=== PATIENT | female | born 1995 | race Caucasian/White ===

== ENCOUNTER 2017-11-16 12:31 | Inpatient (IN) ==
[2017-11-16] MEDS ORDERED: *HR* LORazepam 2 MG/ML VIAL IVP ONE ×3 (12:37→18:30)
--- NOTE | 2017-11-16 12:56 | Emergency Department Note ---
Overdose - MDM Narrative Medical decision making narrative: This is a 22-year-old female status post an overdose likely on diphenhydramine. She appears clinically consistent with an anticholinergic overdose. At this time, she will need to be observed until symptoms resolve she can be seen by psychiatry. I discussed the case with the on-call hospitalist, Dr. Duff, who accepted her for admission - Lab Data Lab results narrative: CBC was unremarkable BMP was unremarkable LFT was unremarkable Salicylate level was low Tylenol level was low Ethanol level was low Drug screen was positive only for THC Result diagrams: 11/16/17 12:52 11/16/17 12:52 Lab Results 11/16/17 11/16/17 11/16/17 Range/Units 12:52 12:52 14:37 WBC 9.7 (4.3-11.1) K/mcL RBC 4.67 (3.82-4.97) M/mcL Hgb 13.5 (11.5-15.4) g/dL Hct 40.3 (35.3-44.9) % MCV 86.3 (83.0-100.0) fL MCH 28.9 (28.0-33.3) pg MCHC 33.5 (31.6-35.5) g/dL RDW 13.0 (11.5-14.5) % Plt Count 319 (140-400) K/mcL MPV 9.5 (9.4-12.4) fL Immature Gran % 0.4 (0-4) % Seg Neutrophils % 69.0 % Lymphocytes % 20.6 % Monocytes % 9.3 % Eosinophils % 0.2 % Basophils % 0.5 % Neutrophils # 6.7 (1.6-8.9) K/mcL Lymphocytes # 2.0 (0.6-4.6) K/mcL Monocytes # 0.9 (0.0-1.3) K/mcL Eosinophils # 0.0 (0.0-0.6) K/mcL Basophils # 0.1 (0.0-0.2) K/mcL Sodium 138 (136-145) mEq/L Potassium 3.6 (3.5-5.1) mEq/L Chloride 108 H (98-107) mEq/L Carbon Dioxide 23 (23-29) mEq/L BUN 13 (6-20) mg/dL Creatinine 1.01 (0.60-1.20) mg/dL Est GFR ( Amer) > 60 (> 60) Est GFR (Non-Af Amer) > 60 (> 60) BUN/Creatinine Ratio 13 (6-26) Glucose 55 L (70-105) mg/dL Calculated Osmolality 284 (280-300) Calcium 8.7 (8.6-10.3) mg/dL Total Bilirubin 0.4 (0.3-1.0) mg/dL Direct Bilirubin 0.1 (0.0-0.2) mg/dL Indirect Bilirubin 0.3 (0.0-1.2) mg/dL AST 8 L (13-39) Units/L ALT 7 (7-52) Units/L Alkaline Phosphatase 64 (34-104) Units/L Serum Total Protein 6.3 L (6.4-8.9) g/dL Albumin 4.0 (3.5-5.7) g/dL Globulin 2.3 L (2.4-3.5) g/dL Albumin/Globulin Ratio 1.7 (1.1-2.2) Urine Color (Yellow) Urine Clarity (Clear) Urine pH (5.0-8.0) pH Units Ur Specific [place] (1.010-1.025) Urine Protein (Neg-Trace) mg/dL Urine Glucose (UA) (Normal) mg/dL Urine Ketones (Negative) mg/dL Urine Blood (Negative) Urine Nitrite (Negative) Urine Bilirubin (Negative) Urine Urobilinogen (Normal) mg/dL Ur Leukocyte Esterase (Negative) Urine Microscopic RBC (0-3) per hpf Urine Microscopic WBC (0-3) per hpf Ur Squamous Epith Cells (None-Few) per lpf Urine Bacteria (None-Few) per hpf Hyaline Casts (None-Few) per lpf Urine Test Negative (Negative) Salicylates < 2.5 L (15.0-30.0) mg/dL Urine Opiates Screen (Wdpnfb=646) ng/mL Acetaminophen < 10 L (10-20) mcg/mL Ur Barbiturates Screen (Bdgenr=191) ng/mL Ur Phencyclidine Scrn (Cutoff=25) ng/mL Ur Amphetamines Screen (Juswny=5323) ng/mL U Benzodiazepines Scrn (Yljznc=993) ng/mL Urine Cocaine Screen (Cutoff= 300) ng/mL U Marijuana (THC) Screen (Cutoff = 50) ng/mL Ur Drug Screen Interp Ethyl Alcohol < 10 (Less than 10) mg/dL 11/16/17 11/16/17 Range/Units 14:41 14:41 WBC (4.3-11.1) K/mcL RBC (3.82-4.97) M/mcL Hgb (11.5-15.4) g/dL Hct (35.3-44.9) % MCV (83.0-100.0) fL MCH (28.0-33.3) pg MCHC (31.6-35.5) g/dL RDW (11.5-14.5) % Plt Count (140-400) K/mcL MPV (9.4-12.4) fL Immature Gran % (0-4) % Seg Neutrophils % % Lymphocytes % % Monocytes % % Eosinophils % % Basophils % % Neutrophils # (1.6-8.9) K/mcL Lymphocytes # (0.6-4.6) K/mcL Monocytes # (0.0-1.3) K/mcL Eosinophils # (0.0-0.6) K/mcL Basophils # (0.0-0.2) K/mcL Sodium (136-145) mEq/L Potassium (3.5-5.1) mEq/L Chloride (98-107) mEq/L Carbon Dioxide (23-29) mEq/L BUN (6-20) mg/dL Creatinine (0.60-1.20) mg/dL Est GFR ( Amer) (> 60) Est GFR (Non-Af Amer) (> 60) BUN/Creatinine Ratio (6-26) Glucose (70-105) mg/dL Calculated Osmolality (280-300) Calcium (8.6-10.3) mg/dL Total Bilirubin (0.3-1.0) mg/dL Direct Bilirubin (0.0-0.2) mg/dL Indirect Bilirubin (0.0-1.2) mg/dL AST (13-39) Units/L ALT (7-52) Units/L Alkaline Phosphatase (34-104) Units/L Serum Total Protein (6.4-8.9) g/dL Albumin (3.5-5.7) g/dL Globulin (2.4-3.5) g/dL Albumin/Globulin Ratio (1.1-2.2) Urine Color Yellow (Yellow) Urine Clarity Clear (Clear) Urine pH 5.0 (5.0-8.0) pH Units Ur Specific [place] > 1.030 H (1.010-1.025) Urine Protein 30 H (Neg-Trace) mg/dL Urine Glucose (UA) Normal (Normal) mg/dL Urine Ketones Negative (Negative) mg/dL Urine Blood Negative (Negative) Urine Nitrite Negative (Negative) Urine Bilirubin Negative (Negative) Urine Urobilinogen Normal (Normal) mg/dL Ur Leukocyte Esterase Negative (Negative) Urine Microscopic RBC 0-3 (0-3) per hpf Urine Microscopic WBC 0-3 (0-3) per hpf Ur Squamous Epith Cells Many H (None-Few) per lpf Urine Bacteria None Seen (None-Few) per hpf Hyaline Casts Few (None-Few) per lpf Urine Test (Negative) Salicylates (15.0-30.0) mg/dL Urine Opiates Screen Negative (Hlqttb=405) ng/mL Acetaminophen (10-20) mcg/mL Ur Barbiturates Screen Negative (Zqpdid=549) ng/mL Ur Phencyclidine Scrn Negative (Cutoff=25) ng/mL Ur Amphetamines Screen Negative (Abpzgz=2308) ng/mL U Benzodiazepines Scrn Negative (Deofbx=026) ng/mL Urine Cocaine Screen Negative (Cutoff= 300) ng/mL U Marijuana (THC) Screen Positive H (Cutoff = 50) ng/mL Ur Drug Screen Interp See Below Ethyl Alcohol (Less than 10) mg/dL - EKG Data EKG attestation: Yes I reviewed and interpreted this EKG. EKG results narrative: ECG shows sinus tachycardia, 141 bpm, normal intervals, normal axis, small T waves, no ST abnormalities Overdose HPI - General Stated Complaint: OD Time Seen by Provider: 11/16/17 12:37 Source: EMS Mode of arrival: EMS Limitations: altered mental status Nursing Notes Reviewed: Yes Vital Signs Reviewed: Yes - History of Present Illness HPI Narrative: This is a 22-year-old female brought in by EMS after they were called by a friend stating that the patient was poorly responsive and noting that a bottle of 30-50 mg diphenhydramine pills was empty and may have been fall prior to this morning. The patient is wide-eyed but nonverbal, appears unable to provide thoughtful responses to questions, and appears very fearful. At this point we must assume that this was an intentional ingestion. Timing is unknown. - Related Data Allergies Allergy/AdvReac Type Severity Reaction Status Date / Time No Known Allergies Allergy Verified 11/16/17 17:04 Limitations: ROS unobtainable due to patients medical condition Past Medical History - Past Medical History Source: unable to obtain Physical Exam - General Limitations: altered mental status General appearance: alert, other (Appears very fearful, wide-eyed, frightened look) - Head Head exam: atraumatic, normocephalic, normal inspection - Eye Eye exam: Present: EOMI, other (Pupils are 3 mm diameter, sluggishly reactive, equal) - Neck Neck exam: Present: normal inspection, full ROM, trachea midline - Chest Chest inspection: Present: normal inspection, symmetric chest wall rise - Respiratory Respiratory exam: Present: normal lung sounds bilaterally - Cardiovascular Cardiovascular exam: Present: normal rhythm, tachycardia, normal heart sounds - Abdominal Exam Abdominal exam: Present: soft, Non-Tender. Absent: tenderness, distention, guarding, rebound, rigidity - Extremities Exam Extremities exam: Present: normal inspection, full ROM. Absent: tenderness, pedal edema - Neurological Exam Neurological exam: Present: alert, CN II-XII intact. Absent: oriented X3, motor sensory deficit - Psychiatric Psychiatric exam: Present: anxious - Skin Skin exam: Present: warm, dry Course Course Narrative: This is a 22-year-old female with an apparent anticholinergic overdose. She was given two 2 mg doses of Ativan with some improvement. Nursing consult in the poison center, and I initially ordered 0.5 mg of physostigmine, but the poison center did not encourage reversal was physostigmine. As a result, I canceled the order was not given. It seems more reasonable simply to observe her in the hospital until symptoms resolve. Vital Signs Temperature 97.6 F 11/16/17 12:33 Pulse Rate 135 11/16/17 12:33 Respiratory Rate 22 11/16/17 12:33 Blood Pressure 127/77 11/16/17 12:33 O2 Sat by Pulse Oximetry 97 11/16/17 12:33 Temperature 97.6 F 11/16/17 12:33 Pulse Rate 135 11/16/17 15:53 Respiratory Rate 20 11/16/17 15:53 Blood Pressure 102/80 11/16/17 15:53 O2 Sat by Pulse Oximetry 97 11/16/17 15:53 Oxygen Delivery Oxygen Delivery Room Air Critical Care Time Critical Care Time: Yes Total Critical Care Time: 20 Attestation: Critical care time involved was 20 minutes associated with review of laboratory values as well as examination of the patient. Disposition Clinical Impression: Overdose of drug Qualifiers: Encounter type: initial encounter Injury intent: intentional self-harm Qualified Code(s): T50.902A - Poisoning by unspecified drugs, medicaments and biological substances, intentional self-harm, initial encounter Disposition: Admitted As Inpatient Condition: Good Referrals: NONE,PCP [Primary Care Provider] - Romelia Clemons [Family Provider] - Time of Disposition: 17:39
[2017-11-16 13:02] LABS: Basophils # 0.1 K/mcL (0.0-0.2); Basophils % 0.5 %; Eosinophils % 0.2 %; Hematocrit 40.3 % (35.3-44.9); Hemoglobin 13.5 g/dL (11.5-15.4); Immature Granulocytes % 0.4 % (0-4); Lymphocytes % 20.6 %; Mean Corpuscular HGB Conc 33.5 g/dL (31.6-35.5); Mean Corpuscular Hemoglobin 28.9 pg (28.0-33.3); Mean Corpuscular Volume 86.3 fL (83.0-100.0); Mean Platelet Volume 9.5 fL (9.4-12.4); Monocytes # 0.9 K/mcL (0.0-1.3); Monocytes % 9.3 %; Neutrophils # 6.7 K/mcL (1.6-8.9); Platelet Count 319 K/mcL (140-400); Red Blood Count 4.67 M/mcL (3.82-4.97)
[2017-11-16 13:20] LABS: Acetaminophen < 10 mcg/mL (10-20); Alanine Aminotransferase 7 Units/L (7-52); Albumin/Globulin Ratio 1.7 (1.1-2.2); Alkaline Phosphatase 64 Units/L (34-104); Aspartate Amino Transferase 8 Units/L (13-39); BUN/Creatinine Ratio 13 (6-26); Bilirubin,Direct 0.1 mg/dL (0.0-0.2); Bilirubin,Indirect 0.3 mg/dL (0.0-1.2); Bilirubin,Total 0.4 mg/dL (0.3-1.0); Blood Urea Nitrogen 13 mg/dL (6-20); Calcium 8.7 mg/dL (8.6-10.3); Carbon Dioxide 23 mEq/L (23-29); Chloride 108 mEq/L (98-107); Ethanol < 10 mg/dL (Less than 10); Globulin 2.3 g/dL (2.4-3.5); Glucose 55 mg/dL (70-105); Osmolality,Calculated 284 (280-300); Potassium 3.6 mEq/L (3.5-5.1); Salicylate < 2.5 mg/dL (15.0-30.0); Sodium 138 mEq/L (136-145); Total Protein 6.3 g/dL (6.4-8.9); eGFR For Non-African Americans > 60 (> 60)
[2017-11-16] MEDS ORDERED: PHYSOSTIGMINE SALICYLATE IVP ONE (14:36)
[2017-11-16 15:14] LABS: Amphetamine Screen,Urine Negative ng/mL (Cutoff=1000); Barbiturate Screen,Urine Negative ng/mL (Cutoff=200); Benzodiazepines Screen,Urine Negative ng/mL (Cutoff=200); Cannabinoid Screen,Urine Positive ng/mL (Cutoff = 50); Cocaine Screen,Urine Negative ng/mL (Cutoff= 300); Opiate Screen,Urine Negative ng/mL (Cutoff=300); Phencyclidine Screen,Urine Negative ng/mL (Cutoff=25)
[2017-11-16 17:14] LABS: Bilirubin,Urine Negative (Negative); Blood,Urine Negative (Negative); Clarity,Urine Clear (Clear); Color,Urine Yellow (Yellow); Glucose,Urine (UA) Normal (Normal); Ketones,Urine Negative (Negative); Leukocyte Esterase,Urine Negative (Negative); Nitrite,Urine Negative (Negative); Protein,Urine 30 mg/dL (Neg-Trace); Specific Gravity,Urine > 1.030 (1.010-1.025); Urobilinogen,Urine Normal (Normal)
[2017-11-16 17:16] LABS: Bacteria,Urine None Seen per hpf (None-Few); Hyaline Casts,Urine Few per lpf (None-Few); RBC,Urine 0-3 per hpf (0-3); Squamous Epithelial Cell,Urine Many per lpf (None-Few); WBC,Urine 0-3 per hpf (0-3)
[2017-11-16] MEDS ORDERED: *HR* LORazepam 2 MG/ML VIAL ONE (18:21)
[2017-11-16] MEDS: *HR* LORazepam 2 MG/ML VIAL IVP PRN ×4 (20:20→23:19)
[2017-11-16] MEDS ORDERED: Naloxone 0.4 MG/ML INJ IVP PRN (22:37)
[2017-11-16] MEDS ORDERED: 0.9 % Sodium Chloride w KCl 20 MEQ/1,000 ML MLS IVC SCH (22:45)
[2017-11-17] MEDS: *HR* LORazepam 2 MG/ML VIAL IVP PRN ×4 (00:43→09:46)
[2017-11-17] MEDS ORDERED: Haloperidol Lactate 5 MG/ML VIAL IVP ONE (02:30)
[2017-11-17 03:36] LABS: Alanine Aminotransferase 5 Units/L (7-52); Albumin 3.9 g/dL (3.5-5.7); Albumin/Globulin Ratio 1.6 (1.1-2.2); Alkaline Phosphatase 62 Units/L (34-104); Aspartate Amino Transferase 12 Units/L (13-39); BUN/Creatinine Ratio 11 (6-26); Bilirubin,Total 0.6 mg/dL (0.3-1.0); Blood Urea Nitrogen 8 mg/dL (6-20); Calcium 8.7 mg/dL (8.6-10.3); Carbon Dioxide 18 mEq/L (23-29); Chloride 111 mEq/L (98-107); Globulin 2.4 g/dL (2.4-3.5); Glucose 82 mg/dL (70-105); Magnesium 2.2 mg/dL (1.6-2.6); Osmolality,Calculated 281 (280-300); Potassium 4.1 mEq/L (3.5-5.1); Sodium 137 mEq/L (136-145); Total Protein 6.3 g/dL (6.4-8.9); eGFR For Non-African Americans > 60 (> 60)
[2017-11-17 03:37] LABS: Basophils # 0.1 K/mcL (0.0-0.2); Basophils % 0.5 %; Eosinophils % 0.1 %; Hematocrit 37.6 % (35.3-44.9); Immature Granulocytes % 0.3 % (0-4); Lymphocytes # 3.6 K/mcL (0.6-4.6); Lymphocytes % 23.6 %; Mean Corpuscular HGB Conc 34.6 g/dL (31.6-35.5); Mean Corpuscular Hemoglobin 29.7 pg (28.0-33.3); Mean Corpuscular Volume 85.8 fL (83.0-100.0); Mean Platelet Volume 9.9 fL (9.4-12.4); Monocytes # 1.5 K/mcL (0.0-1.3); Monocytes % 9.9 %; Platelet Count 296 K/mcL (140-400); Red Blood Count 4.38 M/mcL (3.82-4.97); Segmented Neutrophils % 65.6 %
[2017-11-17 04:43] LABS: Creatine Kinase 86 Units/L (30-223)
--- NOTE | 2017-11-17 05:05 | Internal Med History&Physical ---
Date of Encounter: 11/16/17 Time of Encounter: 23:00 Internal Medicine - H&P: HPI Chief complaint: Drug overdose; possible suicidal attempt. Admitted From: Home Plans for Post Hospital Care: Transfer Psych Facility History of present illness: Ms. Bazzi is a 22 year old female. We got this patient from our emergency department. The patient had likely overdosed diphenhydramine; an empty bottle for 32 50 mg tablets was found next to the patient today. According to the patient's her mother, the patient was talking about killing herself before. She wanted to do that taking "sleeping pills". The patient has been treated for depression with anxiety for long periods of time. I found this patient very agitated; not answering my questions and not following my commands. She was moving her upper and lower extremities continuously. She seemed to be hallucinating. We gave her multiple doses of IV lorazepam. This patient used to live with her girlfriend. She was using marijuana on a daily basis. She was also using both from the streets Xanax. Review of systems: All 14 organ systems were reviewed by me with the patient's mother. Positive and pertinent negative findings are listed above. The rest of organ systems is negative. Physical Exam: Skin: Free of rash and discoloration. Eyes: Sclera is white. There is no discharge from eyes. ENMT: Oral/pharyngeal mucosa is normal in appearance. There is no discharge from nose or ears. Respiratory: Normal breath sounds with no crackles and wheezes bilaterally. CV: Heart is regular with no gallop or murmur. She is tachycardic. GI: Abdomen is flat and soft with no palpable mass or visceromegaly. : There is no tenderness in patient's flanks bilaterally. Neuro exam: The patient is moving all 4 extremities. Her pupils are normal size. Psychiatric: The patient is very agitated; seems to be hallucinating. A/P: Drug overdose. It could be diphenhydramine. This also could be some stimulant. Urine drug screen is positive for marijuana. She may also have acute withdrawal symptomsbenzodiazepines or others. We will continue supportive treatments. She got somewhat better after multiple doses of IV lorazepam. We will keep her on IV fluids with addition of potassium as her potassium is 3.6. Suicidal ideations/possible suicidal attempt in a patient with underlying depression/anxiety. Will consult psychiatry, when she is medically stable. Polysubstance abuse. It is marijuana and Xanax; could be some other substances. Past Med Surg Social Fam HX - Past Medical History Medical history: no medical history Psychiatric history: anxiety, depression - Social History Smoking Status: Current every day smoker Alcohol use: none Drug use: marijuana Internal Medicine - H&P: Meds Brexpiprazole [Rexulti] 1 mg PO DAILY 11/16/17 [History] Sertraline [Zoloft] 50 mg PO DAILY 11/16/17 [History] 3 Allergy/AdvReac Type Severity Reaction Status Date / Time No Known Allergies Allergy Verified 11/16/17 17:04 - Constitutional Vitals: Temp Pulse Resp BP Pulse Ox 98.6 F 107 16 125/79 98 11/16/17 23:32 11/16/17 23:32 11/16/17 23:32 11/16/17 23:32 11/16/17 23:32 Internal Med - H&P Results - Labs CBC & Chem 7: 11/17/17 03:07 11/17/17 03:07 Labs: Short CBC 11/17/17 Range/Units 03:07 WBC 15.2 H D (4.3-11.1) K/mcL Hgb 13.0 (11.5-15.4) g/dL Hct 37.6 (35.3-44.9) % Plt Count 296 (140-400) K/mcL Neutrophils # 10.0 H (1.6-8.9) K/mcL BMP 11/17/17 03:07 Sodium 137 Potassium 4.1 Chloride 111 H Carbon Dioxide 18 L BUN 8 Creatinine 0.73 Glucose 82 Calcium 8.7 Liver Function 11/17/17 Range/Units 03:07 Total Bilirubin 0.6 (0.3-1.0) mg/dL AST 12 L (13-39) Units/L ALT 5 L (7-52) Units/L Alkaline Phosphatase 62 (34-104) Units/L Albumin 3.9 (3.5-5.7) g/dL - Assessment and plan (1) Suicidal overdose Current Visit: Yes Status: Acute Qualifiers: Encounter type: initial encounter Qualified Code(s): T50.902A - Poisoning by unspecified drugs, medicaments and biological substances, intentional self- harm, initial encounter (2) Overdose of drug Current Visit: Yes Status: Acute Qualifiers: Encounter type: initial encounter Injury intent: intentional self-harm Qualified Code(s): T50.902A - Poisoning by unspecified drugs, medicaments and biological substances, intentional self-harm, initial encounter (3) Substance-induced delirium Current Visit: Yes Status: Acute (4) Depression with anxiety Current Visit: Yes Status: Acute - Time Spent With Patient Total time spent is greater than 50% in coordination of care (as documented) at patient's floor/unit and/or counseling patient: Greater than 35 minutes (45 minutes)
--- NOTE | 2017-11-17 08:25 | Electrocardiograph Report ---
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
[2017-11-17] MEDS ORDERED: Haloperidol Lactate 5 MG/ML VIAL IVP PRN (09:51)
--- NOTE | 2017-11-17 12:32 | Consult Note ---
Date of Encounter: 11/17/17 Time of Encounter: 12:13 Assessment & Recommendation (1) Substance-induced delirium Current visit: Yes Status: Acute Assessment & Recommendation: Would recommend inpatient psychiatric admission once medically stable and able to stay awake and answer questions. For agitation would continue prn Haldol for now. Likely had an anticholinergic delirium from Benadryl overdose. Would not continue home antidepressants at this time. History of Present Illness Requesting Physician: Rodo Duff Reason for consult: overdose History of present illness: Ms. Bazzi is a 22 year old female who was admitted following what appears to be an overdose attempt. Believed to have taken an entire bottle of Benadryl. Has been agitated/delirious in the hospital and unable to answer questions. Given Ativan initially which did not help. Switched to Haldol which has had success in calming her but now she is sedated. Opens her eyes but does not respond to this credit underwriter. Mother present and states client has been talking about killing herself. Lives with girlfriend and the two of them frequently threaten suicide. Feed off one another. Client recently started cutting. According to her mother client has never been hospitalized but does see a doctor for "depression and anxiety." Presented to hospital with two pill bottles-Zoloft and Rexulti. Zoloft appears to be an old script. Rexulti is current. Would not recommend giving her either until she clears. Mother does not know of any other health issues. Mother does not know of any AOD use beyond THC. CC: Rodo Duff Past Med Surg Social Fam HX - Past Medical History Medical history: no medical history - Past Psychiatric History Psychiatric history: Reports: anxiety, depression Family psychiatric history: Unknown Family History of Suicide: Unknown - Social History Smoking Status: Current every day smoker Alcohol use: none Drug use: marijuana Medications & Allergies Brexpiprazole [Rexulti] 1 mg PO DAILY 11/16/17 [History] Sertraline [Zoloft] 50 mg PO DAILY 11/16/17 [History] 3 Allergy/AdvReac Type Severity Reaction Status Date / Time No Known Allergies Allergy Verified 11/16/17 17:04 Review of Systems Constitutional: Denies: fever, chills, weakness, weight change Eyes: Denies: eye pain, vision change Ears, Nose, Throat: Denies: ear pain, throat pain, dental pain, hearing loss, congestion Cardiovascular: Denies: chest pain, palpitations, dyspnea on exertion Respiratory: Denies: cough, dyspnea, wheezes Gastrointestinal: Denies: abdominal pain, nausea, vomiting, diarrhea, constipation Genitourinary female: Denies: urgency, dysuria, frequency, abnormal menses, dyspareunia Musculoskeletal: Denies: joint swelling, joint pain Integumentary: Denies: rash, lesions, pruritus Neurological: Denies: headache, weakness, numbness, memory loss Endocrine: Denies: fatigue, heat or cold intolerance Hematologic/Lymphatic: Denies: easy bruising, lymphadenopathy Allergic/Immunologic: Denies: urticaria, itchy eyes Psychiatry Exam - Constitutional Vitals: Temp Pulse Resp BP Pulse Ox 98.3 F 90 16 121/83 98 11/17/17 08:54 11/17/17 08:54 11/17/17 08:54 11/17/17 08:54 11/16/17 23:32 General appearance: age & developmentally appropriate - Musculoskeletal Gait: other Station: other Strength & Tone: other - Psychiatric Patient Orientation: Yes Other Level of alertness: Sedated Behavior: other Eye Contact: No Eye Contact Mood Description: Other Affect description: other Speech Volume: No speech Speech pattern: other Language & Vocabulary: other Thought Content: Yes Suicidal ideation Attention Span Ability: Unable to Focus, Unable to Sustain Attention Patient Reliability: Not Reliable Historian Intelligence Estimate: Average Judgment: Poor Insight: Minimal Results - Labs Labs: Laboratory Last Values WBC 15.2 K/mcL (4.3-11.1) H D 11/17/17 03:07 RBC 4.38 M/mcL (3.82-4.97) 11/17/17 03:07 Hgb 13.0 g/dL (11.5-15.4) 11/17/17 03:07 Hct 37.6 % (35.3-44.9) 11/17/17 03:07 MCV 85.8 fL (83.0-100.0) 11/17/17 03:07 MCH 29.7 pg (28.0-33.3) 11/17/17 03:07 MCHC 34.6 g/dL (31.6-35.5) 11/17/17 03:07 RDW 13.0 % (11.5-14.5) 11/17/17 03:07 Plt Count 296 K/mcL (140-400) 11/17/17 03:07 MPV 9.9 fL (9.4-12.4) 11/17/17 03:07 Immature Gran % 0.3 % (0-4) 11/17/17 03:07 Seg Neutrophils % 65.6 % 11/17/17 03:07 Lymphocytes % 23.6 % 11/17/17 03:07 Monocytes % 9.9 % 11/17/17 03:07 Eosinophils % 0.1 % 11/17/17 03:07 Basophils % 0.5 % 11/17/17 03:07 Neutrophils # 10.0 K/mcL (1.6-8.9) H 11/17/17 03:07 Lymphocytes # 3.6 K/mcL (0.6-4.6) 11/17/17 03:07 Monocytes # 1.5 K/mcL (0.0-1.3) H 11/17/17 03:07 Eosinophils # 0.0 K/mcL (0.0-0.6) 11/17/17 03:07 Basophils # 0.1 K/mcL (0.0-0.2) 11/17/17 03:07 Sodium 137 mEq/L (136-145) 11/17/17 03:07 Potassium 4.1 mEq/L (3.5-5.1) 11/17/17 03:07 Chloride 111 mEq/L (98-107) H 11/17/17 03:07 Carbon Dioxide 18 mEq/L (23-29) L 11/17/17 03:07 BUN 8 mg/dL (6-20) 11/17/17 03:07 Creatinine 0.73 mg/dL (0.60-1.20) 11/17/17 03:07 Est GFR ( Amer) > 60 (> 60) 11/17/17 03:07 Est GFR (Non-Af Amer) > 60 (> 60) 11/17/17 03:07 BUN/Creatinine Ratio 11 (6-26) 11/17/17 03:07 Glucose 82 mg/dL (70-105) 11/17/17 03:07 Calculated Osmolality 281 (280-300) 11/17/17 03:07 Calcium 8.7 mg/dL (8.6-10.3) 11/17/17 03:07 Magnesium 2.2 mg/dL (1.6-2.6) 11/17/17 03:07 Total Bilirubin 0.6 mg/dL (0.3-1.0) 11/17/17 03:07 Direct Bilirubin 0.1 mg/dL (0.0-0.2) 11/16/17 12:52 Indirect Bilirubin 0.3 mg/dL (0.0-1.2) 11/16/17 12:52 AST 12 Units/L (13-39) L 11/17/17 03:07 ALT 5 Units/L (7-52) L 11/17/17 03:07 Alkaline Phosphatase 62 Units/L (34-104) 11/17/17 03:07 Creatine Kinase 86 Units/L (30-223) 11/17/17 03:07 Serum Total Protein 6.3 g/dL (6.4-8.9) L 11/17/17 03:07 Albumin 3.9 g/dL (3.5-5.7) 11/17/17 03:07 Globulin 2.4 g/dL (2.4-3.5) 11/17/17 03:07 Albumin/Globulin Ratio 1.6 (1.1-2.2) 11/17/17 03:07 Urine Color Yellow (Yellow) 11/16/17 14:41 Urine Clarity Clear (Clear) 11/16/17 14:41 Urine pH 5.0 pH Units (5.0-8.0) 11/16/17 14:41 Ur Specific [place] > 1.030 (1.010-1.025) H 11/16/17 14:41 Urine Protein 30 mg/dL (Neg-Trace) H 11/16/17 14:41 Urine Glucose (UA) Normal mg/dL (Normal) 11/16/17 14:41 Urine Ketones Negative mg/dL (Negative) 11/16/17 14:41 Urine Blood Negative (Negative) 11/16/17 14:41 Urine Nitrite Negative (Negative) 11/16/17 14:41 Urine Bilirubin Negative (Negative) 11/16/17 14:41 Urine Urobilinogen Normal mg/dL (Normal) 11/16/17 14:41 Ur Leukocyte Esterase Negative (Negative) 11/16/17 14:41 Urine Microscopic RBC 0-3 per hpf (0-3) 11/16/17 14:41 Urine Microscopic WBC 0-3 per hpf (0-3) 11/16/17 14:41 Ur Squamous Epith Cells Many per lpf (None-Few) H 11/16/17 14:41 Urine Bacteria None Seen per hpf (None-Few) 11/16/17 14:41 Hyaline Casts Few per lpf (None-Few) 11/16/17 14:41 Urine Test Negative (Negative) 11/16/17 14:37 Salicylates < 2.5 mg/dL (15.0-30.0) L 11/16/17 12:52 Urine Opiates Screen Negative ng/mL (Mrxmiw=401) 11/16/17 14:41 Acetaminophen < 10 mcg/mL (10-20) L 11/16/17 12:52 Ur Barbiturates Screen Negative ng/mL (Limcxj=959) 11/16/17 14:41 Ur Phencyclidine Scrn Negative ng/mL (Cutoff=25) 11/16/17 14:41 Ur Amphetamines Screen Negative ng/mL (Vyvoda=8136) 11/16/17 14:41 U Benzodiazepines Scrn Negative ng/mL (Qaagvy=314) 11/16/17 14:41 Urine Cocaine Screen Negative ng/mL (Cutoff= 300) 11/16/17 14:41 U Marijuana (THC) Screen Positive ng/mL (Cutoff = 50) H 11/16/17 14:41 Ur Drug Screen Interp See Below 11/16/17 14:41 Ethyl Alcohol < 10 mg/dL (Less than 10) 11/16/17 12:52 Consult Discharge Plan - Plan
--- NOTE | 2017-11-17 14:27 | Discharge Summary ---
- NOTES TO OUTPATIENT PROVIDER Notes to Outpatient Provider: With psychiatrist Orders not resulted at time of discharge: Pending orders 11/17/17 07:43 EKG [ECG 12 lead ECG] [ECG] Stat Date of Encounter: 11/17/17 Time of Encounter: 09:30 - Discharge Diagnosis (1) Overdose of drug Priority: Primary Status: Acute Qualifiers: Encounter type: initial encounter Injury intent: intentional self-harm Qualified Code(s): T50.902A - Poisoning by unspecified drugs, medicaments and biological substances, intentional self-harm, initial encounter (2) Substance-induced delirium Priority: Primary Status: Acute (3) Suicidal overdose Priority: Primary Status: Acute Qualifiers: Encounter type: initial encounter Qualified Code(s): T50.902A - Poisoning by unspecified drugs, medicaments and biological substances, intentional self- harm, initial encounter (4) Depression with anxiety Priority: Secondary Status: Chronic Hospital course: Ms. Bazzi is a 22 year old female with depression and anxiety with hx of suicidal ideation who was found wit an empt bottle of 32 pills of 50mg of benadryl empty beside her. According to the patient's her mother, the patient was talking about killing herself before. She wanted to do that taking "sleeping pills". The patient has been treated for depression with anxiety for long periods of time. During my review, the patient was psychotic and hallucinating. She has had no fever, labs were unremarkable, UA was clean and Utox was positive for THC EKG was normal sinus rhythm with normal QRS. LFT was unremarkable. Salicylate level was low .Tylenol level was low. Ethanol level was low She responded to haldol only, lorazepam further made her agitated She received supportive care with IVF hydration and sitter was placed wit psych eval Psych recommends in-patient psych admission when medically stable, patient is currently medically stable as there is no sepsis, no fever, vitals are stable EKG is unremarkable for QRS changes Discharge discussed with: patient, nurse, professional employer consultant - Time Spent with Patient Total time spent providing and/or coordinating discharge services: Less than 30 minutes - Discharge Medications Home Medications: Brexpiprazole [Rexulti] 1 mg PO DAILY 11/16/17 [History] Sertraline [Zoloft] 50 mg PO DAILY 11/16/17 [History] Allergies/Adverse Reactions: 3 Allergy/AdvReac Type Severity Reaction Status Date / Time No Known Allergies Allergy Verified 11/16/17 17:04 Date of admission: 11/16/17 22:37 Primary care physician: PCP NONE Consults: 11/17/17 01:53 Consult to R[facility] Puncher [CONS] Routine Reason for SW Consult: OVERDOSE 11/17/17 07:41 Consult to Psychiatry [CONS] Routine Consulting Provider: Psychiatry Chanell Reason consult: Sitter/1:1 Discharging clinician: Eusebio Young Anticipated date of discharge: 11/17/17 - Constitutional Vitals: Temp Pulse Resp BP Pulse Ox 98.3 F 90 16 121/83 98 11/17/17 08:54 11/17/17 08:54 11/17/17 08:54 11/17/17 08:54 11/16/17 23:32 General appearance: Present: A&O X 1 (confused, unable to hold a conversation, not in distress but confused and agitated) - Head Head exam: Present: atraumatic, normocephalic - Eye Eye exam: Present: PERRL (pupils 3mm, reactive), conjuntiva pink, sclera anicteric Pupils: Present: PERRL - Neck Neck exam general surgery: Present: supple, trachea midline. Absent: lymphadenopathy - Respiratory Respiratory exam: Present: CTAB. Absent: accessory muscle use, rales, rhonchi, wheezes - Cardiovascular Cardiovascular exam: Present: RRR, +S1, +S2. Absent: diastolic murmur, gallop, rubs, systolic murmur - GI/Abdominal GI/Abdominal exam: Present: normal bowel sounds, soft, no peritoneal signs. Absent: distended, tenderness - Extremities Exam Extremities exam: Present: warm, radial pulses palpable and symmetrical. Absent : calf tenderness, cyanotic, pedal edema - Neurological Exam Neurological exam: Present: alert, CN II-XII intact, no focal deficits. Absent : oriented X3, pronater drift, facial droop, speech deficit - Skin Skin exam: Present: dry, intact - Patient Status Disposition: Transfer Psychiatric Hosp Condition: Good Overall status at discharge: patient is not back to baseline - Discharge Instructions Follow Up With: NONE,PCP [Primary Care Provider] - Romelia Clemons [Family Provider] - Forms: ED Satisfaction Letter - Diet and Activity Diet: regular diet
[2017-11-17] MEDS: Nicotine 14 MG PATCH.TD24 TD SCH (20:57)
[2017-11-18] MEDS: Nicotine 14 MG PATCH.TD24 TD SCH (10:18)
[2017-11-18 11:24] VITALS: BP 116/72
--- NOTE | 2017-11-18 11:42 | Internal Med Progress Note ---
Hospitalist Progress Note - Encounter Date of Encounter: 11/18/17 Time of Encounter: 11:40 - Subjective Interval History: Patient seen and examined in the room, family at the bedside, sitter in the room. Her mood is unstable, but denies suicidal ideation at this time. Denies hallucination. Denies chest pain, shortness breath, or palpitation. - Exam Vitals: Temp Pulse Resp BP Pulse Ox 98.3 F 83 18 116/72 99 11/18/17 11:22 11/18/17 11:22 11/18/17 11:22 11/18/17 11:11/18/17 11:22 Exam: PHYSICAL EXAMINATION: GENERAL APPEARANCE: The patient is alert, oriented and in no acute distress. HEENT: Head is normocephalic. The sinuses are nontender. Pupils are equal and reactive. The nares are patent. Oropharynx clear without lesions. NECK: Supple without lymphadenopathy. HEART: Regular rate and rhythm. LUNGS: No crackles or wheezes are heard. ABDOMEN: Soft, nontender, nondistended with good bowel sounds heard. Inguinal area is normal. EXTREMITIES: Without cyanosis, clubbing or edema. NEUROLOGICAL: Gross nonfocal. SKIN: Warm and dry without any rash. - Assessment and Plan (1) Overdose of drug Current Visit: Yes Status: Acute Assessment and Plan: 22-year-old female with long time history of depression/anxiety presented with Benadryl overdose and suicidal ideation. Urine drug screen positive for marijuana. She was treated by hospitalist group for drug-induced delirium. Currently patient is medically stable, she does not have signs and symptoms of anti-cholinergic toxicity management. EKG showed normal QRS and QT. Psychiatry was consulted and patient is waiting to be transferred to inpatient psych unit. (2) Substance-induced delirium Current Visit: Yes Status: Acute Assessment and Plan: Stable. (3) Suicidal overdose Current Visit: Yes Status: Acute Assessment and Plan: Waiting to be transferred to inpatient psych floor. (4) Depression with anxiety Current Visit: Yes Status: Chronic Assessment and Plan: Psychiatry following. - Time Spent with Patient Total time spent is greater than 50% in coordination of care (as documented) at patient's floor/unit and/or counseling patient: Greater than 35 minutes Plan of Care Discussed with: patient Internal Medicine: Result - Labs CBC & Chem 7: 11/17/17 03:07 11/17/17 03:07 Consult Discharge Plan - Plan Referrals: NONE,PCP [Primary Care Provider] - Peggy Clemonsio [Family Provider] - (1) Overdose of drug Qualifiers: Encounter type: initial encounter Injury intent: intentional self-harm Qualified Code(s): T50.902A - Poisoning by unspecified drugs, medicaments and biological substances, intentional self-harm, initial encounter (3) Suicidal overdose Qualifiers: Encounter type: initial encounter Qualified Code(s): T50.902A - Poisoning by unspecified drugs, medicaments and biological substances, intentional self-harm , initial encounter
== END 2017-11-18 15:02 | DRG 812 ==
LOC: 2ANU 12:31 → EMEROO 12:31 → 2ANU 18:26
PROVIDERS: ADMIT Internal Medicine; ATTEND Internal Medicine

== ENCOUNTER 2017-11-18 14:59 | Inpatient (IN) ==
[2017-11-18] MEDS ORDERED: *HR* LORazepam 2 MG/ML VIAL IM PRN (15:18)
[2017-11-18] MEDS ORDERED: Acetaminophen 325 MG TABLET PO PRN (15:18)
[2017-11-18] MEDS ORDERED: hydrOXYzine pamoate 25 MG CAPSULE PO PRN (15:18)
[2017-11-18] MEDS ORDERED: traZODone 50 MG TABLET PO PRN (15:18)
[2017-11-18] MEDS ORDERED: *HR* LORazepam 1 MG TABLET PO PRN (15:18)
[2017-11-18] MEDS ORDERED: Mag Hydrox/Al Hydrox/Simeth 30 ML UDC PO PRN (15:18)
[2017-11-18] MEDS ORDERED: Haloperidol Lactate 5 MG/ML VIAL IM PRN (15:18)
[2017-11-18] MEDS ORDERED: MOM Conc 10 ML UD.LIQ PO PRN (15:18)
[2017-11-19] MEDS: Nicotine 2 MG GUM BC PRN (08:50)
--- NOTE | 2017-11-19 10:01 | Psychiatry History & Physical ---
Date of Encounter: 11/19/17 Time of Encounter: 09:30 History of Present Illness Patient Stated Chief Complaint: I donot remember what happened. Medicare Admission Attestation: For traditional Medicare patients the provided hospital inpatient services are reasonable and necessary and in the case of services not specified as inpatient -only under 42 CFR 419.22 (n), that they are appropriately provided as inpatient services in accordance 42 CFR 412.3. For Critical Access Hospital the patient may reasonably be expected to be discharged or transferred to a hospital within 96 hours after admission to the Critical Access Hospital. Admitted From: Direct Admit Plans for Post Hospital Care: Home History of Present Illness: Ms. Bazzi is a 22 year old female evaluated today . HPI : Patient is 22 yr old SWF lives with roommates and works FT , she apparently OD on bottle of benadryl and was admitted to medical floor, she has h/o depression and anxiety and was seeing psychiatrist DR Lentz and was given rexulti and zoloft , states she was not compliant , she would forget , states was having relationship problems, financial problems , i do not remember i feel like i have forgotten , she does not remember OD , she is crying intermittently and unable to give detail history , she has been depress , states i do not like it here , crying and states i want to go home, she is very anxious, restless and depress. she feels confused and foggy , she feels paranoid and feels people watching her , i want second chance , i can fix things , she agreed wanted to hurt self because that was my only option. she denies suicidal thoughts states i am confused right now and sad , i get irrational and has h/o self mutilation , states i quit because people ask me, i do have the urges , i worry a lot, gets anxiety attacks and has some obsessive thoughts . she denies any manic episode, denies any substance use , smokes marijuana occasionally. Past psychiatric : States it been long time, i do not know when , h/o cutting self since teenage , she is in out patient treatment for depression and anxiety. was on zoloft ,rexulti and denies any other medication. no psych inpatient hospitalization. Substance use : marijuana occasionally , denies any other . Family h/o : all of them have depression as per her, mother attempted suicide . Medical : s/p OD on Benadryl whole bottle in an attempt to hurt self. Patient remains depress, anxious , hopeless and confused at times, she needs inpatient for safety and stabilization . Will start medication and informed consent obtained and plan d/w patient. Past Med Surg Social Fam HX - Past Medical History Medical history: no medical history - Past Psychiatric History Psychiatric history: Reports: anxiety, depression Family psychiatric history: Yes Family History of Suicide: Attempted (mother) - Past Surgical History Surgical History: no surgical history - Social History Smoking Status: Current every day smoker Smokeless Tobacco Status: Yes Alcohol use: none Drug use: marijuana - Family History Mother Adopted: [place]: Dayna Bazzi Family Member Ethnicity: Non- Living Status: Still Living Hx Family Cardiac Disorders: No Hx Family Respiratory Disorders: No Hx Family Cancer: No Hx Family GI Disorders: No Hx Family Genitourinary Disorders: No Hx Family Endocrine Disorder: No Hx Family Musculoskeletal Disorders: No Hx Family Neuromuscular Disorders: No Hx Family Neurologic Disorders: No Hx Family HEENT Disorders: No Hx Family Autoimmune Disorders: No Hx Family Reproductive Disorders: No Hx Family Psychosocial Disorders: Yes (Depression and history of suicide attempts) Hx Family Medical Disorders: No Medications & Allergies Brexpiprazole [Rexulti] 1 mg PO DAILY 11/16/17 [History] Sertraline [Zoloft] 50 mg PO DAILY 11/16/17 [History] 3 Allergy/AdvReac Type Severity Reaction Status Date / Time No Known Allergies Allergy Verified 11/16/17 17:04 Review of Systems Constitutional: Denies: fever, chills, weakness, weight change Eyes: Denies: eye pain, vision change Ears, Nose, Throat: Denies: ear pain, throat pain, dental pain, hearing loss, congestion Cardiovascular: Denies: chest pain, palpitations, dyspnea on exertion Respiratory: Denies: cough, dyspnea, wheezes Gastrointestinal: Denies: abdominal pain, nausea, vomiting, diarrhea, constipation Genitourinary female: Denies: urgency, dysuria, frequency, abnormal menses, dyspareunia Musculoskeletal: Denies: joint swelling, joint pain Integumentary: Denies: rash, lesions, pruritus Neurological: Denies: headache, weakness, numbness, memory loss Psychiatric: Reports: depression, anxiety, abnormal sleep pattern, change in appetite, confusion, hopelessness, panic attacks Endocrine: Denies: fatigue, heat or cold intolerance Hematologic/Lymphatic: Denies: easy bruising, lymphadenopathy Allergic/Immunologic: Denies: urticaria, itchy eyes Exam - HEENT Head exam IM: Present: atraumatic Eye exam IM: Present: EOMI, normal appearance, PERRL ENT exam IM: Present: normal exam - Neurological Neurological exam: Present: CN II-XII intact - Respiratory Respiratory exam IM: Present: CTAB - Extremities Extremities exam IM: Present: full ROM - Skin Skin exam IM: Present: dry, warm - Constitutional Vitals: Temp Pulse Resp BP 98.6 F 103 20 139/85 11/19/17 09:00 11/19/17 09:00 11/19/17 09:00 11/19/17 09:00 General appearance: unkempt, average - Musculoskeletal Gait: normal Station: other Strength & Tone: normal for patient - Psychiatric Level of alertness: Alert Behavior: cooperative, anxious, restless, distractible Psychomotor activity: Increased Eye Contact: Minimal Contact Mood Description: Depressed, Anxious, Irritable Affect description: congruent with mood, tearful Speech Volume: Normal Speech pattern: repetetive Language & Vocabulary: consistent with education Thought Content: Yes Preoccupation, Yes Paranoid delusion, Yes Guilt Attention Span Ability: Unable to Sustain Attention Memory Description: Immediate Impaired, Recent Intact Patient Reliability: Questionable Historian Fund of knowledge: Yes average Intelligence Estimate: Average Judgment: Poor Insight: Partial Assessment and Plan (1) Suicidal overdose Current visit: No Status: Acute Plan: Admit inpatient for safety and stabilization, Close observation, Suicide Precautions per unit protocol, Encourage participation in unit milieu, Group Therapy, Monitor sleep, Monitor appetite, Family/Supportive other meeting Risks, benefits, side effects, alternatives discussed w/pt: Yes Patient agreeable to treatment: Yes Plans for Post Hospital Care: at Home Qualifiers: Encounter type: subsequent encounter Qualified Code(s): T50.902D - Poisoning by unspecified drugs, medicaments and biological substances, intentional self-harm, subsequent encounter (2) Major depress dis, severe Current visit: Yes Status: Acute Plan: Admit inpatient for safety and stabilization, Close observation, Suicide Precautions per unit protocol, Encourage participation in unit milieu, Group Therapy, Monitor sleep, Monitor appetite, Secure weapons, Family/Supportive other meeting Risks, benefits, side effects, alternatives discussed w/pt: Yes Patient agreeable to treatment: Yes Plans for Post Hospital Care: at Home Estimated Length of Stay (Days): 4 (3) Generalized anxiety disorder Current visit: Yes Status: Acute Plan: Admit inpatient for safety and stabilization Risks, benefits, side effects, alternatives discussed w/pt: Yes Patient agreeable to treatment: Yes Plans for Post Hospital Care: at Home
--- NOTE | 2017-11-20 09:59 | Psychiatry Progress Note ---
Date of Encounter: 11/20/17 Time of Encounter: 09:35 Subjective Interval history: Patient seen today , case d/w treatment team , patient has been crying and has been yelling and irritable on phone. she does not want to be here. states i did not sleep well , its hard for me to fall sleep, moods are sad as i am here, denies any suicidal ideation , states gets paranoid a lot mostly when very anxious , i like to keep my cool but it is not always the case ,remains tearful and irritable during session. remains isolative , not much interaction , has attended some groups. family visited her and as per her good visit. supportive counselling given. denies side effects. Review of Systems Psychiatric: Reports: depression, anxiety, abnormal sleep pattern, change in appetite, confusion, hopelessness, panic attacks Results - Vital Signs Vital Signs: Temp Pulse Resp BP 98.1 F 109 16 111/73 11/20/17 09:00 11/20/17 09:00 11/20/17 09:00 11/20/17 09:00 Assessment and Plan (1) Suicidal overdose Current visit: No Status: Acute Risks, benefits, side effects, alternatives discussed w/pt: Yes Patient agreeable to treatment: Yes Qualifiers: Encounter type: subsequent encounter Qualified Code(s): T50.902D - Poisoning by unspecified drugs, medicaments and biological substances, intentional self-harm, subsequent encounter (2) Major depress dis, severe Current visit: Yes Status: Acute Risks, benefits, side effects, alternatives discussed w/pt: Yes Patient agreeable to treatment: Yes (3) Generalized anxiety disorder Current visit: Yes Status: Acute Risks, benefits, side effects, alternatives discussed w/pt: Yes Patient agreeable to treatment: Yes Consult Discharge Plan - Plan Referrals: [facility] [Outside] - 11/22/17 10:00 am (The above appointment is with Sidra Davis for substance abuse and mental health counselling. Please bring your photo ID, proof of income and insurance card to your appointment.) [facility] [Outside] - 11/26/17 3:00 pm (The above appointment is with Dr. Mota, a psychiatric provider for assessment and medication management. Please bring photo ID and insurance card.) Psychiatry Exam - Constitutional Vitals: Temp Pulse Resp BP 98.1 F 109 16 111/73 11/20/17 09:00 11/20/17 09:00 11/20/17 09:00 11/20/17 09:00 General appearance: age & developmentally appropriate - Musculoskeletal Gait: normal Station: other Strength & Tone: normal for patient - Psychiatric Patient Orientation: Yes Person, Yes Time, Yes Place Level of alertness: Alert Behavior: cooperative, tearful, withdrawn Psychomotor activity: Slowed Eye Contact: Minimal Contact Mood Description: Depressed, Anxious, Irritable Affect description: tearful, dysphoric Speech Volume: Normal Speech pattern: coherent, slowed Language & Vocabulary: consistent with education Thought Process: Intact Thought Content: Yes Preoccupation, Yes Paranoid delusion, Yes Guilt Perceptual Disturbances: No Auditory hallucinations, No Visual hallucinations Attention Span Ability: Capable of Focused Attention Memory Description: Grossly Intact Patient Reliability: Reliable Historian Fund of knowledge: Yes average Intelligence Estimate: Average Judgment: Limited Insight: Partial
[2017-11-20] MEDS: Nicotine 2 MG GUM BC PRN (10:40)
--- NOTE | 2017-11-21 09:51 | Discharge Summary ---
Date of Encounter: 11/21/17 Time of Encounter: 09:20 Diagnosis - Discharge Diagnosis (1) Suicidal overdose Status: Resolved Comments: Patient at present not suicidal/homicidal and has good support , will follow up out patient. Qualifiers: Encounter type: subsequent encounter Qualified Code(s): T50.902D - Poisoning by unspecified drugs, medicaments and biological substances, intentional self-harm, subsequent encounter (2) Major depress dis, severe Status: Acute Comments: patient improved with medication and denied any si/hi. (3) Generalized anxiety disorder Status: Chronic Medications - Discharge Medications Prescriptions: Citalopram [CeleXA] 20 mg PO DAILY #14 tablet Quetiapine Fumarate [Seroquel] 25 mg PO HS #14 tablet Citalopram [CeleXA] 20 mg PO DAILY #14 tablet 11/21/17 [Rx] Quetiapine Fumarate [Seroquel] 25 mg PO HS #14 tablet 11/21/17 [Rx] 3 Allergy/AdvReac Type Severity Reaction Status Date / Time No Known Allergies Allergy Verified 11/16/17 17:04 Provider Date of admission: 11/18/17 14:59 Primary care physician: PCP NONE Psychiatry Exam - Constitutional Vitals: Temp Pulse Resp BP 98.6 F 71 18 116/77 11/20/17 20:05 11/20/17 20:05 11/20/17 20:05 11/20/17 20:05 General appearance: age & developmentally appropriate - Musculoskeletal Gait: normal Station: relaxed Strength & Tone: normal for patient - Psychiatric Patient Orientation: Yes Person, Yes Time, Yes Place Level of alertness: Alert Behavior: cooperative, tearful Psychomotor activity: Normal Eye Contact: Maintains Eye Contact Mood Description: Anxious Affect description: congruent with mood Speech Volume: Normal Speech pattern: coherent Language & Vocabulary: consistent with education Thought Process: Intact, Logical Thought Content: Yes Intact Perceptual Disturbances: No Auditory hallucinations, No Visual hallucinations Attention Span Ability: Capable of Focused Attention Memory Description: Grossly Intact Patient Reliability: Reliable Historian Fund of knowledge: Yes average Intelligence Estimate: Average Judgment: Fair Insight: Full Hospital Course Hospital course: Ms. Bazzi is a 22 year old female Upon Admission Patient is 22 yr old SWF lives with roommates and works FT , she apparently OD on bottle of benadryl and was admitted to medical floor, she has h/o depression and anxiety and was seeing psychiatrist DR Lentz and was given rexulti and zoloft , states she was not compliant , she would forget , states was having relationship problems, financial problems , i do not remember i feel like i have forgotten , she does not remember OD , she is crying intermittently and unable to give detail history , she has been depress , states i do not like it here , crying and states i want to go home, she is very anxious, restless and depress. she feels confused and foggy , she feels paranoid and feels people watching her , i want second chance , i can fix things , she agreed wanted to hurt self because that was my only option. she denies suicidal thoughts states i am confused right now and sad , i get irrational and has h/o self mutilation , states i quit because people ask me, i do have the urges , i worry a lot, gets anxiety attacks and has some obsessive thoughts . she denies any manic episode, denies any substance use , smokes marijuana occasionally. COURSE OF HOSPITALIZATION Patient was started on different medications as home meds were not working for her , she started showing improvement and insight and denied any side effects, she was given counselling and attended groups , she was compliant with unit milieu. she has support from her parents and friend , she will stay with her father and will start working after her out patient appointment . she at present is not suicidal/homicidal and d/w her about her emotion and personality affecting her emotions, patient agreed to work in therapy. at present discharged to family and not in immenent danger to self/others. Time spent discussing smoking cessation with patient: 3 to 10 minutes Does patient wish to continue nicotine replacement upon disc: Yes (patient agreeing to patch) - Time Spent with Patient Total time spent providing and/or coordinating discharge services: Greater than 30 minutes Assessment and Plan - Patient/Caregiver Discharge Instructions Activity: resume usual activities as tolerated Diet: regular diet - Follow up Plan Follow up with: [facility] [Outside] - 11/22/17 10:00 am (The above appointment is with Sidra Davis for mental health counseling services. Please bring your photo ID, proof of income and insurance card to your appointment.) [facility] [Outside] - 11/26/17 3:00 pm (The above appointment is with Dr. Mota, a psychiatric provider for assessment and medication management. Please bring photo ID and insurance card.) Overall status at discharge: Stable Disposition: Home, Self-Care Quality - Multiple Antipsychotics Patient discharged on 2 or more antipsychotic medications: No Procedures - Procedures Procedures: Medication Management, Crisis Stabilization, Supportive Therapy, Group Therapy, Psychoeducational Therapy
[2017-11-21 09:58] VITALS: BP 111/82
== END 2017-11-21 11:10 | disposition home or self-care (01) | DRG 812 ==
LOC: SUATTDRO 14:59 → 1ANU 14:59
PROVIDERS: ADMIT Psychiatry & Neurology Psychiatry; ATTEND Psychiatry & Neurology Psychiatry